=== PATIENT | female | born 1935 | race Two or more races ===

== ENCOUNTER 2022-10-13 19:43 | Inpatient (IN) | payer MEDICARE, OTHER ==
[~2022-10-13] VITALS: Ht 160 cm; Wt 36.7 kg
[2022-10-13] MEDS ORDERED: CEFTRIAXONE 1GM BAG (ER ONLY) 50 ML IV ONE ×2 (20:30→20:35)
[2022-10-13] MEDS ORDERED: ACETAMINOPHEN 325 MG TABLET PO ONE (20:30)
[2022-10-13] MEDS ORDERED: IV NS 0.9% 1,000 ML IV ONE ×2 (20:30→23:30)
[2022-10-13] MEDS ORDERED: ACETAMINOPHEN 325 MG TABLET ONE (20:36)
[2022-10-13 20:53] LABS: BASOPHILS # (AUTO) 0.1 K/uL (0.0-0.2); BASOPHILS % (AUTO) 0.5 % (0.0-2.0); HEMATOCRIT 26 % (33-45); HEMOGLOBIN 8.4 g/dL (11.5-14.8); LYMPHOCYTES # (AUTO) 1.6 K/uL (0.8-4.8); LYMPHOCYTES % (AUTO) 11.2 % (20.0-44.0); MEAN CORPUSCULAR HGB CONC 32 g/dl (31.0-36.0); MEAN CORPUSCULAR VOLUME 84 fL (82-100); MONOCYTES # (AUTO) 1.1 K/uL (0.1-1.30); MONOCYTES % (AUTO) 7.8 % (2.0-12.0); NEUTROPHILS # (AUTO) 11.5 K/uL (1.8-8.9); NEUTROPHILS % (AUTO) 79.5 % (43.0-81.0); PLATELET COUNT (AUTO) 540 K/uL (150-450); RED BLOOD CELL COUNT(AUTO) 3.09 MIL/uL (4.0-5.2); WHITE BLOOD COUNT (AUTO) 14.4 K/uL (4.3-11.0)
--- NOTE | 2022-10-13 20:53 | NUR ---
PT IN BED 6 A/O X2, ON 2L NC O2SAT 97%. C/O: ALTERED MENTAL STATUS, COUGH FOR 1 MONTH. CONNECTED TO BEDSIDE MONITOR O2SAT, BP CUFF. DAUGHTER AT BEDSIDE. IN HIGH FLOWLERS, BED LOCKED IN LOWEST POSTIONED BEDRAILS UP.
--- NOTE | 2022-10-13 20:53 | NUR ---
COVID SWAB TAKEN AND SENT TO LAB
--- NOTE | 2022-10-13 20:55 | NUR ---
20G LAC STARTED BLOOD AND CULTURES DRAWN AND SENT TO LAB.
[2022-10-13 21:12] LABS: CARBON DIOXIDE 27 mmol/L (21-32); CHLORIDE 103 mmol/L (98-107); CREATININE 0.7 mg/dL (0.6-1.3); GLUCOSE 103 mg/dL (74-106); POTASSIUM 3.6 mmol/L (3.5-5.1); SODIUM SERUM 137 mmol/L (136-145); UREA NITROGEN, BLOOD 20 mg/dL (7-18)
[2022-10-13 21:21] LABS: ALANINE AMINOTRANSFERASE 12 U/L (12-78); ALBUMIN 2.8 g/dL (3.4-5.0); ALKALINE PHOSPHATASE 73 U/L (46-116); ASPARTATE AMINOTRANSFERASE 15 U/L (15-37); BILIRUBIN,DIRECT 0.1 mg/dL (0.0-0.2); BILIRUBIN,TOTAL 0.3 mg/dL (0.2-1.0); TOTAL PROTEIN, SERUM 6.7 g/dL (6.4-8.2)
--- NOTE | 2022-10-13 21:35 | NUR ---
URINE COLLECTED AND SENT TO LAB
--- NOTE | 2022-10-13 21:35 | NUR ---
FLU SWAB DONE AND SENT TO LAB
[2022-10-13 22:01] LABS: BILIRUBIN,URINE NEGATIVE (NEGATIVE); COLOR,URINE YELLOW (YELLOW); LEUKOCYTE ESTERASE ,URINE 3+ (NEGATIVE); NITRITE, URINE NEGATIVE (NEGATIVE); PH,URINE 7.5 (5.0-8.0); PROTEIN,URINE 2+ mg/dl (NEGATIVE); UGLUCOSE NEGATIVE (NEGATIVE); UROBILINOGEN,URINE 0.2 EU/dL (0.2)
[2022-10-13 22:35] LABS: BACTERIA,URINE Many /HPF (None Seen); WBC,URINE 51-80 /HPF (0-3)
[2022-10-13 22:36] LABS: SQUAMOUS EPITHELIAL CELL,UR Few /HPF (None Seen)
[2022-10-13] MEDS ORDERED: ZOLPIDEM TARTRATE 5 MG TABLET PO PRN (23:30)
[2022-10-13] MEDS ORDERED: MAG HYDROX/AL HYDROX/SIMETH 30 ML UDC PO PRN (23:30)
[2022-10-13] MEDS ORDERED: ACETAMINOPHEN 325 MG TABLET PO PRN (23:30)
[2022-10-13] MEDS ORDERED: ONDANSETRON HCL/PF 4 MG/2 ML VIAL IVP PRN (23:30)
[2022-10-13] MEDS ORDERED: Z GUARD REMEDY 4 OZ OINT TP PRN (23:30)
[2022-10-13] MEDS ORDERED: MAGNESIUM HYDROXIDE 30 ML UDC PO PRN (23:30)
--- NOTE | 2022-10-13 23:45 | NUR ---
REPORT GIVEN TO MAY
--- NOTE | 2022-10-13 23:50 | NUR ---
MS RN NOTE REPORT RECEIVED FROM [employer] DYNAMICS DEVELOPER.
--- NOTE | 2022-10-13 23:52 | NUR ---
MS RN NOTE ACCORDING TO THE REPORT FROM [employer] TECHNICIAN,PT'S CODE STATUS IS UNKNOWN. WILL CONTACT THE FACILITY PT CAME FROM TO VERIFY ONCE PT ARRIVES AT THE UNIT.
--- NOTE | 2022-10-13 23:58 | NUR ---
MS RN NOTE PT'S CODE STATUS IS FULL CODE ACCORDING TO Alda GRANT'S ORDER.
[2022-10-14 00:30] VITALS: BP 117/64
--- NOTE | 2022-10-14 00:30 | NUR ---
MS MEDICAL LABORATORY TECHNICAL OFFICER NOTE PATIENT IS TRANSFERRED ON THE GURNEY FROM ER TO THE UNIT. SHE IS ALERT AND ORIENTED TO HER NAME AND HER . PT IS ON RA, TOLERATED WELL. NO S/S OF DISTRESS OR SOB. IV ACCESS IS AT HER L AC, #20G, RUNNING NS @75 ML/HR. IV SITE IS PATENT AND INTACT. ORIENTED THE PT WITH SURROUNDINGS. SAFETY MEASURES ARE IN PLACED: BED IN LOWEST AND LOCKED POSITION; SIDE RAILS UP X 2; BED ALARM IS SET. CALL LIGHT AND TABLE ARE WITHIN REACH. WILL CONTINUE MONITORING THE PATIENT AND PROVIDE THE CARE PT NEEDS.
--- NOTE | 2022-10-14 01:00 | NUR ---
MS RN NOTE CALLED PT'S DAUGHTER, KIN, DAMASO, AT [phone] REGARDING HER MOTHER'S CODE STATUS. NOBODY ANSWERED THE PHONE. VOICE MESSAGE WITH CALL BACK NUMBER LEFT TO [facility].
[2022-10-14 06:06] LABS: BASOPHILS # (AUTO) 0.1 K/uL (0.0-0.2); BASOPHILS % (AUTO) 0.5 % (0.0-2.0); EOSINOPHILS % (AUTO) 1.3 % (0.0-6.0); HEMATOCRIT 27 % (33-45); HEMOGLOBIN 8.8 g/dL (11.5-14.8); LYMPHOCYTES # (AUTO) 1.5 K/uL (0.8-4.8); LYMPHOCYTES % (AUTO) 14.2 % (20.0-44.0); MEAN CORPUSCULAR HGB CONC 33 g/dl (31.0-36.0); MEAN CORPUSCULAR VOLUME 83 fL (82-100); MONOCYTES # (AUTO) 0.9 K/uL (0.1-1.30); MONOCYTES % (AUTO) 8.2 % (2.0-12.0); NEUTROPHILS # (AUTO) 7.9 K/uL (1.8-8.9); NEUTROPHILS % (AUTO) 75.8 % (43.0-81.0); PLATELET COUNT (AUTO) 512 K/uL (150-450); RED BLOOD CELL COUNT(AUTO) 3.18 MIL/uL (4.0-5.2); WHITE BLOOD COUNT (AUTO) 10.4 K/uL (4.3-11.0)
[2022-10-14 06:38] LABS: CALCIUM, SERUM 8.9 mg/dL (8.5-10.1); CREATININE 0.7 mg/dL (0.6-1.3); MAGNESIUM 1.8 mg/dL (1.8-2.4); PHOSPHORUS 3.5 mg/dL (2.5-4.9); POTASSIUM 3.5 mmol/L (3.5-5.1)
[2022-10-14 06:50] LABS: THYROID STIMULATING HORMONE 2.431 uIU/mL (0.358-3.74)
--- NOTE | 2022-10-14 06:52 | NUR ---
MS RN CLOSING NOTE PATIENT IS SLEEPING IN BED; EASILY BEING AROUSED. SHE IS ALERT AND ORIENTED TO HER NAME AND HER ONLY. PT IS ON RA, TOLERATED WELL. NO S/S OF DISTRESS OR SOB. IV ACCESS IS AT HER L AC, #20G, RUNNING NS @75 ML/HR. IV SITE IS PATENT AND INTACT.SAFETY MEASURES ARE IN PLACED: BED IN LOWEST AND LOCKED POSITION; SIDE RAILS UP X 2; BED ALARM IS SET. CALL LIGHT AND TABLE ARE WITHIN REACH. WILL ENDORSE NEXT SHIFT NURSE FOR CONTINUING PT CARE.
[2022-10-14] MEDS: ENOXAPARIN SODIUM 30 MG/0.3 ML DISP.SYRIN SQ SCH (08:20)
[2022-10-14] MEDS: DOCUSATE SODIUM 100 MG CAPSULE PO SCH ×2 (08:20→16:26)
[2022-10-14] MEDS: PANTOPRAZOLE 40 MG VIAL IV SCH (08:21)
[2022-10-14] MEDS: ENSURE ENLIVE 237 ML LIQUID (VANILLA) PO SCH ×3 (09:22→16:26)
[2022-10-14 09:32] VITALS: BP 120/62
[2022-10-14] MEDS ORDERED: LEVO50TA8 PO (12:16)
[2022-10-14] MEDS ORDERED: RISP0.2515 PO (12:16)
[2022-10-14] MEDS ORDERED: TEMA30CA PO (12:16)
[2022-10-14] MEDS ORDERED: TRAM50TA2 PO (15:03)
[2022-10-14] MEDS ORDERED: ACET-907 PO (15:03)
[2022-10-14] MEDS ORDERED: GUAI600T53 PO (15:03)
[2022-10-14] MEDS ORDERED: SENN-18 PO (15:03)
[2022-10-14] MEDS ORDERED: IPRA3AMP23 IH (15:03)
[2022-10-14] MEDS ORDERED: TRAZ-182 PO (15:03)
[2022-10-14] MEDS ORDERED: LORA-259 PO (15:03)
--- NOTE | 2022-10-14 15:19 | NUR ---
OPENING NOTE RECEIVED PATIENT IN BED SLEEPING COMFORTABLY, NO SIGNS OF IN DISTRESS, UNLABORED BREATHING NOTED, NO COMPLAINT OF PAIN, SAFETY MEASURES APPLIED, BED IN LOW POSITION LOCKED, SIDE RAILS UP X3, CALL LIGHT WITHIN REACH.
[2022-10-14 16:35] VITALS: BP 123/66
--- NOTE | 2022-10-14 18:52 | NUR ---
PATIENT IS AWAKE, ALERT, ORIENTEDX3, RESTING IN BED COMFORTABLY, NO SIGNS OF IN DISTRESS, UNLABORED BREATHING ON ROOM AIR, SAFETY MEASURES APPLIED, BED IN LOW POSITION LOCKED, SIDE RAILS UPX3, CALL LIGHT WITHIN REACH.
--- NOTE | 2022-10-14 19:30 | NUR ---
RN NOTE RECEIVED PT IN BED, ALERT, AWAKE AND VERBALLY RESPONSIVE, PT ORIENTED TO SELF AND PLACE AT THIS TIME. DENIES PAIN OR DISCOMFORT. ON ROOM AIR, WELL ALEX. NO ACUTE RESP DISTRESS NOTED, RESPIRATION EVEN AND UNLABORED. NO IVF RUNNING AT THIS TIME, LAC #20G PATENT, FLUSHES WELL, ON SL. HOB ELEVATED. SAFETY PRECAUTION IMPLEMENTED. BED ALARM ON AND IN LOWEST POSITION, BED LOCKED. WILL CONTINUE POC.
[2022-10-14 20:00] VITALS: BP 124/73
[2022-10-14] MEDS: CEFTRIAXONE 1 G in IV D5W 50 ML IV SCH (21:01)
[2022-10-15 04:00] VITALS: BP 123/68
--- NOTE | 2022-10-15 06:45 | NUR ---
RN NOTE PT REMAINS IN STABLE CONDITION, VSS. NO SIGNIFICANT CHANGES NOTED DURING THW SHIFT. REMAINS ON ROOM AIR, NO SOB, NO ACUTE RESP DISTRESS. AFEBRILE. PIV ON SL. KEPT PT CLEAN, DRY AND COMFORTABLE. ALL NEEDS ATTENDED. SAFETY PRECAUTION IMPLEMENTED AT ALL TIMES. WILL ENDORSE TO AM SHIFT NURSE.
[2022-10-15 07:17] LABS: BASOPHILS # (AUTO) 0.1 K/uL (0.0-0.2); BASOPHILS % (AUTO) 0.5 % (0.0-2.0); HEMATOCRIT 28 % (33-45); HEMOGLOBIN 9.1 g/dL (11.5-14.8); LYMPHOCYTES # (AUTO) 1.4 K/uL (0.8-4.8); LYMPHOCYTES % (AUTO) 11.3 % (20.0-44.0); MEAN CORPUSCULAR HGB CONC 33 g/dl (31.0-36.0); MEAN CORPUSCULAR VOLUME 84 fL (82-100); MONOCYTES % (AUTO) 8.7 % (2.0-12.0); NEUTROPHILS # (AUTO) 9.2 K/uL (1.8-8.9); NEUTROPHILS % (AUTO) 77.5 % (43.0-81.0); PLATELET COUNT (AUTO) 542 K/uL (150-450); WHITE BLOOD COUNT (AUTO) 11.9 K/uL (4.3-11.0)
--- NOTE | 2022-10-15 07:30 | NUR ---
MS RN OPENING NOTE RECEIVED PATIENT IN BED AWAKE, SHE IS ALERT AND ORIENTED TO HER NAME AND HER ONLY. PT IS ON RA, TOLERATED WELL. NO S/S OF DISTRESS OR SOB. IV ACCESS IS AT HER L AC, #20G, IV SITE IS PATENT AND INTACT, FLUSHES WELL. SAFETY MEASURES ARE IN PLACED: BED IN LOWEST AND LOCKED POSITION; SIDE RAILS UP X 2; BED ALARM IS SET. CALL LIGHT AND TABLE ARE WITHIN REACH. PLAN OF CARE CONTINUE. .
[2022-10-15 07:34] LABS: CALCIUM, SERUM 9.2 mg/dL (8.5-10.1); CREATININE 0.8 mg/dL (0.6-1.3); MAGNESIUM 1.9 mg/dL (1.8-2.4); PHOSPHORUS 3.4 mg/dL (2.5-4.9); POTASSIUM 3.6 mmol/L (3.5-5.1)
[2022-10-15] MEDS: DOCUSATE SODIUM 100 MG CAPSULE PO SCH ×2 (08:23→16:24)
[2022-10-15] MEDS: PANTOPRAZOLE 40 MG VIAL IV SCH (08:24)
[2022-10-15] MEDS: ENOXAPARIN SODIUM 30 MG/0.3 ML DISP.SYRIN SQ SCH (08:26)
[2022-10-15] MEDS: ENSURE ENLIVE 237 ML LIQUID (VANILLA) PO SCH ×3 (08:28→16:25)
[2022-10-15] MEDS: PANTOPRAZOLE 40 MG TABLET.DR PO SCH (09:00)
[2022-10-15 12:00] VITALS: BP 98/65
[2022-10-15] MEDS: risperiDONE 0.25 MG TABLET PO SCH (16:24)
--- NOTE | 2022-10-15 18:02 | NUR ---
DAUGHTER REQUESTED TO SPEAK WITH LEXI TROY, LEXI TROY NOTIFIED AND GAVE DAUGHTER PATIENT'S NO [facility]. PER DAUGHTER PATIENT IS HAVING A HARD TIME CHEWING REGULAR FOOD, INFORMED LEXI TROY WITH ORDER ST EVAL AND CHANGED DIET TO MECHANICAL SOFT FINELY CHOPPED NOTED AND CARRIED OUT, INFORMED DAUGHTER AT THE BEDSIDE.
--- NOTE | 2022-10-15 18:06 | NUR ---
MS RN CLOSING NOTE PATIENT IN BED AWAKE, DAUGHTER AT THE BEDSIDE WITH THE PATIENT WATCHING TV. SHE IS ALERT AND ORIENTED TO HER NAME AND HER ONLY. PT IS ON RA, TOLERATED WELL. NO S/S OF DISTRESS OR SOB. IV ACCESS IS AT HER L AC, #20G, IV SITE IS PATENT AND INTACT, FLUSHES WELL. SAFETY MEASURES ARE IN PLACED: BED IN LOWEST AND LOCKED POSITION; SIDE RAILS UP X 2; BED ALARM IS SET. CALL LIGHT AND TABLE ARE WITHIN REACH. WILL ENDORSE TO NIGHT NURSE FOR BRAYDEN.
--- NOTE | 2022-10-15 19:40 | NUR ---
MS RN OPENING NOTES - RECEIVED PATIENT AWAKE. A/O X3. BREATHING EVEN AND NON-LABORED ON ROOM AIR. NOT IN ACUTE DISTRESS. DENIES PAIN AT THIS TIME. HAS LEFT ANTECUBITAL IV ACCESS #20G AND SALINE LOCKED. NO S/S OF INFILTRATION NOTED. SAFETY PRECAUTIONS IN PLACE: BED LOCKED AND IN LOW POSITION, SIDE RAILS UP X3, CALL LIGHT WITHIN REACH. WILL CONTINUE PLAN OF CARE.
[2022-10-15 20:00] VITALS: BP 113/68
[2022-10-15] MEDS: CEFTRIAXONE 1 G in IV D5W 50 ML IV SCH (20:59)
[2022-10-16 04:00] VITALS: BP 123/73
--- NOTE | 2022-10-16 06:47 | NUR ---
MS RN CLOSING NOTES - PATIENT SLEEPING INTERMITTENTLY, EASY TO AROUSE. ABLE TO VERBALIZE NEEDS. NO RESPIRATORY OR CARDIAC DISTRESS NOTED. TOLERATING ROOM AIR WELL. NO C/O PAIN OR DISCOMFORT. REINSERTED IV ACCESS TO RIGHT FOREARM #22G, INTACT, PATENT AND FLUSHING. ALL DUE MEDS GIVEN AND NEEDS ATTENDED. PERINEAL CARE RENDERED. REPOSITIONED AND OFFLOADED BUTTOCKS. SAFETY PRECAUTIONS MAINTAINED. WILL ENDORSE TO NEXT SHIFT FOR BRAYDEN.
[2022-10-16 08:00] VITALS: BP 115/68
[2022-10-16 08:02] LABS: BASOPHILS % (AUTO) 0.4 % (0.0-2.0); EOSINOPHILS % (AUTO) 2.7 % (0.0-6.0); HEMATOCRIT 27 % (33-45); LYMPHOCYTES # (AUTO) 1.5 K/uL (0.8-4.8); LYMPHOCYTES % (AUTO) 13.8 % (20.0-44.0); MEAN CORPUSCULAR HGB CONC 33 g/dl (31.0-36.0); MEAN CORPUSCULAR VOLUME 83 fL (82-100); MONOCYTES # (AUTO) 1.1 K/uL (0.1-1.30); NEUTROPHILS # (AUTO) 7.9 K/uL (1.8-8.9); NEUTROPHILS % (AUTO) 73.1 % (43.0-81.0); PLATELET COUNT (AUTO) 533 K/uL (150-450); RED BLOOD CELL COUNT(AUTO) 3.24 MIL/uL (4.0-5.2); WHITE BLOOD COUNT (AUTO) 10.8 K/uL (4.3-11.0)
[2022-10-16] MEDS: DOCUSATE SODIUM 100 MG CAPSULE PO SCH ×2 (08:07→16:01)
[2022-10-16] MEDS: PANTOPRAZOLE 40 MG TABLET.DR PO SCH (08:07)
[2022-10-16] MEDS: ENSURE ENLIVE 237 ML LIQUID (VANILLA) PO SCH ×3 (08:07→16:02)
[2022-10-16] MEDS: ENOXAPARIN SODIUM 30 MG/0.3 ML DISP.SYRIN SQ SCH (08:13)
[2022-10-16 08:29] LABS: CALCIUM, SERUM 8.9 mg/dL (8.5-10.1); CARBON DIOXIDE 29 mmol/L (21-32); CHLORIDE 102 mmol/L (98-107); CREATININE 0.7 mg/dL (0.6-1.3); GLUCOSE 97 mg/dL (74-106); MAGNESIUM 1.8 mg/dL (1.8-2.4); PHOSPHORUS 2.9 mg/dL (2.5-4.9); POTASSIUM 3.6 mmol/L (3.5-5.1); SODIUM SERUM 137 mmol/L (136-145); UREA NITROGEN, BLOOD 21 mg/dL (7-18)
--- NOTE | 2022-10-16 10:07 | NUR ---
WOUND CARE CONSULT: PT PRESENTS WITH SACRAL DEEP TISSUE INJURY WITH SCARRING, PRESENT ON ADMISSION. PT NOTED TO HAVE RT HEEL BLANCHABLE REDNESS. PT TENDS TO RUB HER RT HEEL ON THE BED. PT IS INCONTINENT AND VERY THIN. DISCUSSED SKIN PROTECTION WITH NURSING STAFF. IN AGREEMENT WITH PLAN OF CARE. Addendum: 10/16/22 at 1008 by DARLINE NUR [facility]ND[facility] Amended: Links added.
[2022-10-16] MEDS: PROSOURCE / PROSTAT (PYXIS) 30 ML UDC GT SCH ×2 (12:07→16:02)
[2022-10-16 16:00] VITALS: BP 119/73
[2022-10-16] MEDS: risperiDONE 0.25 MG TABLET PO SCH (16:01)
--- NOTE | 2022-10-16 18:41 | NUR ---
PATIENT IS AWAKE IN BED COMFORTABLY, ORIENTEDX3 WITH TIME OF CONFUSION, NO SIGNS OF IN DISTRESS, UNLABORED BREATHING ON ROOM AIR, SAFETY MEASURES ARE APPLIED, BED IN LOW POSITION LOCKED, SIDE RAILS UPX3, CALL LIGHT WITHIN REACH.
--- NOTE | 2022-10-16 19:39 | NUR ---
MS RN NOTES RECEIVED LYING ON BED A/O X2-3,WATCHING TV PROGRAM.NO SOB.HOB SLIGHTLY ELEVATED.WITH SALINE LOCK RFA INTACT AND PATENT.FALL RISK.BED ON LOWEST POSITION AND LOCKED,BED ALARM TRIGGERED.WILL CONTINUE TO MONITOR STATUS.CALL LIGHT IN REACH,NEEDS ANTICIPATED.
[2022-10-16 20:00] VITALS: BP 136/75
[2022-10-16] MEDS: CEFTRIAXONE 1 G in IV D5W 50 ML IV SCH (21:07)
--- NOTE | 2022-10-16 22:30 | NUR ---
MS RN NOTES SALINE LOCK ACCIDENALLY PULLED OUT.NEW SALINE LOCK IMSERTED ON RIGHT FOREARM #22.IB ROCEPHIN INFUSING THIS TIME.
--- NOTE | 2022-10-17 01:54 | NUR ---
MS RN NOTES C/O INSOMNIA,AMBIEN 5MG PO GIVEN ORDERED AND PER PATIENT REQUEST.
[2022-10-17 04:00] VITALS: BP 131/74
--- NOTE | 2022-10-17 06:46 | NUR ---
MS RN NOTES SLEPT 4 HOURS AT NIGHT WITH AZULABDON.AFEBRILE.MED COMPLIANT,NO FALL,NO INJURY.IN NO ACUTE DISTRESS.
[2022-10-17 07:39] LABS: BASOPHILS # (AUTO) 0.1 K/uL (0.0-0.2); BASOPHILS % (AUTO) 0.4 % (0.0-2.0); EOSINOPHILS % (AUTO) 0.6 % (0.0-6.0); HEMATOCRIT 26 % (33-45); HEMOGLOBIN 8.4 g/dL (11.5-14.8); LYMPHOCYTES # (AUTO) 1.5 K/uL (0.8-4.8); LYMPHOCYTES % (AUTO) 10.4 % (20.0-44.0); MEAN CORPUSCULAR HGB CONC 33 g/dl (31.0-36.0); MEAN CORPUSCULAR VOLUME 83 fL (82-100); MONOCYTES # (AUTO) 1.3 K/uL (0.1-1.30); MONOCYTES % (AUTO) 9.2 % (2.0-12.0); NEUTROPHILS # (AUTO) 11.1 K/uL (1.8-8.9); NEUTROPHILS % (AUTO) 79.4 % (43.0-81.0); PLATELET COUNT (AUTO) 502 K/uL (150-450)
--- NOTE | 2022-10-17 08:02 | NUR ---
MS RN OPENING NOTES RECEIVED PATIENT SEEPING IN BED, EASILY AROUSED BY VERBAL STIMULI A/O X2-3.NO SOB.HOB SLIGHTLY ELEVATED.WITH SALINE LOCK RFA INTACT AND PATENT.FALL RISK.BED ON LOWEST POSITION AND LOCKED,BED ALARM TRIGGERED.WILL CONTINUE TO MONITOR STATUS.CALL LIGHT IN REACH,NEEDS ANTICIPATED.
[2022-10-17] MEDS: DOCUSATE SODIUM 100 MG CAPSULE PO SCH (08:29)
[2022-10-17] MEDS: PANTOPRAZOLE 40 MG TABLET.DR PO SCH (08:30)
[2022-10-17] MEDS: ENOXAPARIN SODIUM 30 MG/0.3 ML DISP.SYRIN SQ SCH (08:30)
[2022-10-17 08:31] LABS: CALCIUM, SERUM 9.1 mg/dL (8.5-10.1); CREATININE 0.7 mg/dL (0.6-1.3); MAGNESIUM 1.8 mg/dL (1.8-2.4); PHOSPHORUS 2.7 mg/dL (2.5-4.9); POTASSIUM 3.6 mmol/L (3.5-5.1)
[2022-10-17] MEDS: ENSURE ENLIVE 237 ML LIQUID (VANILLA) PO SCH ×2 (09:35→12:28)
[2022-10-17] MEDS: PROSOURCE / PROSTAT (PYXIS) 30 ML UDC GT SCH ×2 (09:35→12:27)
[2022-10-17 10:59] VITALS: BP 125/77
[2022-10-17] MEDS ORDERED: LEVO500T90 PO (11:17)
[2022-10-17] MEDS ORDERED: LACT-246 PO (11:17)
--- NOTE | 2022-10-17 15:00 | NUR ---
DISCHARGED NOTE PATIENT DISCHARGED TO [facility] IN STABLE CONDITION, A/OX1-2. PATIENT ON RA, TOLERATING WELL NO SOB/CARDIAC DISTRESS NOTED. IV ACCESS REMOVED ASEPTICALLY, DISCHARGED INSTRUCTION RELAYED TO [facility] ALL BELONGINGS ACCOUNTED TO THE PATIENT. KEPT PATIENT CLEAN AND COMFORTABLE, ALL DUE MEDS GIVEN. PATIENT'S DAUGHTER MADE AWARE OF THE DC, PATIENT LEFT THE UNIT VIA AMBULANCE. DISCHARGED.
== END 2022-10-17 14:41 | DRG 871 ==
LOC: ER 19:46 → TELE1 23:37 → MEDSG1 10-14 00:23
PROVIDERS: ADMIT Nurse Practitioner Acute Care; ATTEND Registered Nurse
DX: A41.9 Sepsis, unspecified organism (principal); G92.8 Other toxic encephalopathy; N39.0 Urinary tract infection, site not specified; F03.93 Unspecified dementia, unspecified severity, with mood disturbance; F03.94 Unspecified dementia, unspecified severity, with anxiety; B95.2 Enterococcus as the cause of diseases classified elsewhere; Z20.822 Contact with and (suspected) exposure to COVID-19; Z88.5 Allergy status to narcotic agent; Z88.2 Allergy status to sulfonamides; Z88.8 Allergy status to other drugs, medicaments and biological substances; M19.90 Unspecified osteoarthritis, unspecified site; F41.9 Anxiety disorder, unspecified; F32.A Depression, unspecified; E86.0 Dehydration; R79.89 Other specified abnormal findings of blood chemistry; Z86.16 Personal history of COVID-19; Z87.440 Personal history of urinary (tract) infections; D64.9 Anemia, unspecified
CPT/HCPCS: 36415; 71045-TC; 80048-TC; 80076-TC; 81001; 82607-TC; 83540-TC; 83605-TC; 83735-TC; 84100-TC; 84443-TC; 84484-TC; 85025-TC; 85730-TC; 87040-TC; 87081-TC; 87086-TC; 92526; 92611-TC; 97112-TC; 97116-TC; 97530-TC; A4223; C9113; C9803; G0378; J0696; J1650; J7030; J7050; J7060